=== PATIENT | female | born 1955 | race Caucasian/White ===

== ENCOUNTER 2017-02-22 17:36 | Emergency (ER) | payer SELFPAY ==
[2017-02-22 17:49] VITALS: BP 119/77
--- NOTE | 2017-02-22 17:54 | UC ---
Lower Extremity/Ankle HPI - HPI Summary HPI Summary: 61 YEAR OLD FEMALE PRESENTS WITH COMPLAINS OF RIGHT WRIST AND LEFT KNEE PAIN SECONDARY TO A FALL AT WORK. - History of Current Complaint Chief Complaint: UCLowerExtremity Stated Complaint: LEG INJURY Time Seen by Provider: 02/22/17 17:54 Hx Obtained From: Patient Onset/Duration: Sudden Onset Severity Initially: Moderate Severity Currently: Moderate Pain Scale Used: 0-10 Numeric - 8 Aggravating Factor(s): Standing Able to Bear Weight: Yes - Allergies/Home Medications Allergies/Adverse Reactions: Allergies Allergy/AdvReac Type Severity Reaction Status Date / Time Iodine Allergy Severe Swelling Verified 02/22/17 17:49 Penicillins Allergy Severe Swelling Verified 02/22/17 17:49 Codeine Allergy Intermediate Rash And Verified 02/22/17 17:49 Itching Sulfa Antibiotics Allergy Mild Nausea Verified 02/22/17 17:49 MRI dye Allergy Severe Swelling Uncoded 02/22/17 17:49 Anti anxiety medication Allergy Dizziness Uncoded 02/22/17 17:49 PMH/Surg Hx/FS Hx/Imm Hx Previously Healthy: Yes - Surgical History Surgical History: Yes Surgery Procedure, Year, and Place: 1990 hysterectomy [facility]. 2006 left shoulder [facility]. 2006 LEFT knee [facility]. ovarian cysts [facility] - Family History Known Family History: Negative: Cardiac Disease, Hypertension, Diabetes - Social History Alcohol Use: Rare Alcohol Amount: MAYBE 1 DRINK/YEAR Substance Use Type: None Smoking Status (MU): Never Smoked Tobacco Have You Smoked in the Last Year: No Review of Systems Constitutional: Negative Skin: Negative Eyes: Negative ENT: Negative Respiratory: Negative Cardiovascular: Negative Gastrointestinal: Negative Genitourinary: Negative Motor: Negative Neurovascular: Negative Musculoskeletal: Other: - LEFT KNEE PAIN/SWELLING RIGHT WRIST PAIN Neurological: Negative Psychological: Negative All Other Systems Reviewed And Are Negative: Yes Physical Exam Triage Information Reviewed: Yes Vital Signs: Initial Vital Signs Temp 36.2 C 02/22/17 17:44 Pulse 83 02/22/17 17:44 Resp 19 02/22/17 17:44 BP 119/77 02/22/17 17:44 Pulse Ox 98 02/22/17 17:44 Vital Signs Reviewed: Yes Eye Exam: Normal ENT Exam: Normal Dental Exam: Normal Neck exam: Normal Neck: Positive: 1 Respiratory Exam: Normal Cardiovascular Exam: Normal Abdominal Exam: Normal Musculoskeletal: Positive: Other: - LEFT KNEE PAIN/SWELLING RIGHT WRIST PAIN Neurological Exam: Normal Psychological Exam: Normal Skin Exam: Normal Lower Extremity Course/Dx - Differential Dx/Diagnosis Provider Diagnoses: LEFT KNEE PAIN/SWELLING. RIGHT WRIST PAIN Discharge - Discharge Plan Condition: Stable Disposition: HOME Prescriptions: Meloxicam [Mobic] 7.5 mg PO BID PC #30 tab Patient Education Materials: Knee Pain (ED) Referrals: Nara Yoder MD [Primary Care Provider] - Sheila Sparrow MD [Medical Doctor] -
--- NOTE | 2017-02-22 18:32 | RAD ---
INDICATION: Left knee pain after a fall with a patient with prior left knee surgeries COMPARISON: Similar radiograph dated February 22, 2007 TECHNIQUE: 4 view radiograph of the left knee. FINDINGS: Degenerative changes include loss of joint height at the lateral compartment with near apposition of the articulating services. This appears to have progressed since the prior knee radiograph. The visualized bones are otherwise well corticated and appropriately aligned. There is no large joint effusion. IMPRESSION: Degenerative changes of the left knee, advanced since the February 22, 2007 radiograph, without radiographically apparent acute fracture or dislocation. If the patient's symptoms persist, follow-up imaging is recommended.
--- NOTE | 2017-02-22 18:33 | RAD ---
INDICATION: Right elbow pain after a fall COMPARISON: None. TECHNIQUE: 4 views right elbow. REPORT: The visualized bones of the right elbow are well corticated and properly aligned. There is no radiographically apparent fracture or dislocation. There is no radiographic evidence of pathologic joint effusion. IMPRESSION: Normal radiograph of the right elbow. If the patient's symptoms persist further follow-up imaging is recommended.
== END 2017-02-22 19:16 | disposition home or self-care (01) ==
LOC: UCEAST 17:36
DX: M25.562 Pain in left knee (principal); M25.462 Effusion, left knee; M25.531 Pain in right wrist; Z90.710 Acquired absence of both cervix and uterus; Z88.5 Allergy status to narcotic agent; Z88.0 Allergy status to penicillin; Z88.2 Allergy status to sulfonamides; Z88.8 Allergy status to other drugs, medicaments and biological substances; Z91.041 Radiographic dye allergy status
CPT/HCPCS: 99213; G0463

== ENCOUNTER 2019-05-22 04:20 | Emergency (ER) | payer OTHER ==
--- NOTE | 2019-05-22 04:34 | ED ---
Abdominal Pain/Female - HPI Summary HPI Summary: 63 year old F arriving via private car complains of epigastric and RUQ abdominal pain described as burning and tearing x3 hours. Has nausea/vomiting, mid thoracic upper back pain, diaphoresis and chills. No fever or lower abdominal pain. Last bowel movement 15:00 yesterday 05/21. Symptoms rated 7/10 in severity. Symptoms aggravated by sitting up right and lying down. Symptoms alleviated by nothing. Hx hiatal hernia. Surgical hx hysterectomy and appendectomy. Allergies reviewed. - History of Current Complaint Chief Complaint: EDAbdPain Stated Complaint: THROWING UP/ABD PAIN PER PT Hx Obtained From: Patient Onset/Duration: Lasting Hours - 3, Still Present Timing: Constant Severity Currently: Moderate Pain Intensity: 7 Pain Scale Used: 0-10 Numeric Location: Discrete At: RUQ, Epigastric Character: Burning, Tearing Aggravating Factor(s): Other: - sitting up right and lying down Alleviating Factor(s): Nothing Associated Signs and Symptoms: Positive: Negative - fever, lower abdominal pain , Other: - nausea/vomiting, mid thoracic upper back pain, diaphoresis and chills Allergies/Adverse Reactions: Allergies Allergy/AdvReac Type Severity Reaction Status Date / Time codeine Allergy Rash And Verified 05/22/19 04:31 Itching Iodinated Contrast Media Allergy Hives Verified 05/22/19 04:31 Penicillins Allergy Swelling Verified 05/22/19 04:31 Sulfa (Sulfonamide Allergy Headache Verified 05/22/19 04:31 Antibiotics) MRI dye Allergy Severe Swelling Uncoded 05/22/19 04:31 Anti anxiety medication Allergy Dizziness Uncoded 05/22/19 04:31 PMH/Surg Hx/FS Hx/Imm Hx Endocrine/Hematology History: Denies: Hx Diabetes, Hx Thyroid Disease Cardiovascular History: Reports: Hx Peripheral Vascular Disease - RT LEG, Other Cardiovascular Problems/Disorders - PAST Hx MILD MITRAL VALVE, STATES DR SAYS NO CURRENT Denies: Hx Angina, Hx Coronary Artery Disease, Hx Hypercholesterolemia, Hx Hypertension, Hx Myocardial Infarction, Hx Pacemaker/ICD, Hx Valvular Heart Disease Respiratory History: Reports: Other Respiratory Problems/Disorders - sob r/o pe Denies: Hx Asthma, Hx Chronic Obstructive Pulmonary Disease (COPD) GI History: Reports: Hx Gastroesophageal Reflux Disease - ON DAILY MED, Hx Hiatal Hernia, Other GI Disorders - hiatal hernia Denies: Hx Ulcer History: Denies: Hx Renal Disease Musculoskeletal History: Reports: Hx Arthritis - HANDS, LOW BACK, Other Musculoskeletal History - see above Sensory History: Reports: Hx Contacts or Glasses - GLASSES Denies: Hx Hearing Aid Opthamlomology History: Reports: Hx Contacts or Glasses - GLASSES Psychiatric History: Denies: Hx Panic Disorder - Surgical History Surgery Procedure, Year, and Place: 1990 hysterectomy [facility]. 2006 [facility] shoulder [facility]. 2006 LEFT [facility]. ovarian cysts [facility] Hx Anesthesia Reactions: No Infectious Disease History: No Infectious Disease History: Reports: History Other Infectious Disease - giardia , campylobacter Denies: Hx Clostridium Difficile, Hx Hepatitis, Hx Human Immunodeficiency Virus (HIV), Hx of Known/Suspected MRSA, Hx Shingles, Hx Tuberculosis, Hx Known/ Suspected VRE, Hx Known/Suspected VRSA, Traveled Outside the [place] in Last 30 Days - Family History Known Family History: Negative: Cardiac Disease, Hypertension, Diabetes - Social History Alcohol Use: Rare Substance Use Type: Reports: None Hx Tobacco Use: No Smoking Status (MU): Never Smoked Tobacco Have You Smoked in the Last Year: No Review of Systems - ROS Summary Review of Systems Summary: Home Medications Medication Instructions Recorded Confirmed Type Zolpidem TAB* [Ambien*] 1 - 2 tab PO BEDTIME PRN 07/15/12 11/10/17 History Positive: Chills, Skin Diaphoresis. Negative: Fever Gastrointestinal: Negative - lower abdominal pain Positive: Abdominal Pain - RUQ, epigastric, Vomiting, Nausea Positive: Other - mid thoracic upper back pain All Other Systems Reviewed And Are Negative: Yes Physical Exam - Summary Physical Exam Summary: General: Obese FEMALE who appears in moderate discomfort HEENT: Normocephalic, Atraumatic. Eyes: Conjuctiva normal, PERRL. Oropharynx: Clear, mucous membranes moist, (-) exudates. Neck: Soft, FROM, (-) lymphadenopathy, (-) thyromegaly, (-) JVD. Cardiovascular: Normal sinus rhythm, (-) murmur. Lungs: Clear to auscultation bilaterally (-) wheezes, (-) rales, (-) rhonchi. Abdomen: Soft, mild RUQ and epigastric tend to palpation, non-distended, (-) organomegaly, normal bowel sounds. Back: (-) CVA tenderness Extremities: No edema. Skin: Warm, dry, (-) rash. Neuro: Alert and oriented x3, no focal deficits. Psychiatric: Mood normal, affect normal. Triage Information Reviewed: Yes Vital Signs On Initial Exam: Initial Vitals Temp Pulse Resp BP Pulse Ox 97 F 106 20 148/89 96 05/22/19 04:22 05/22/19 04:22 05/22/19 04:22 05/22/19 04:22 05/22/19 04:22 Vital Signs Reviewed: Yes Procedures - Sedation Patient Received Moderate/Deep Sedation with Procedure: No Diagnostics - Vital Signs Vital Signs Temp Pulse Resp BP Pulse Ox 05/22/19 04:22 97 F 106 20 148/89 96 - Laboratory Result Diagrams: 05/22/19 04:55 05/22/19 04:55 Lab Statement: Any lab studies that have been ordered have been reviewed, and results considered in the medical decision making process. - EKG 0442 Cardiac Rate: NL - 87 BPM EKG Rhythm: Sinus Rhythm Summary of EKG Findings: EKG at 0442 reveals normal sinus rhythm with rate of 87 BPM, no acute changes, no ischemic changes. This EKG was reviewed and interpreted by Dr. Osuna. Abdominal Pain Fem Course/Dx - Course Course Of Treatment: 63-year-old female presents with abdominal pain, nausea and vomiting Patient given Zofran, Protonix, Toradol, normal saline fluids. Epigastric and upper abdominal pain described. Patient is described pain as burning and goes through to her back. Workup demonstrates an elevated WBC. CT scan abdomen and pelvis ordered. Patient has history of allergy to IV contrast. CAT scan ordered without contrast dye. Signed out at change of shift awaiting imaging results - Diagnoses Provider Diagnoses: Abdominal pain Discharge ED - Sign-Out/Discharge Documenting (check all that apply): Sign-Out Patient Signing out patient TO: Lila Alejandra - awaiting ABD/PEL CT and pending disposition - Discharge Plan Condition: Good Referrals: Nara Yoder MD [Primary Care Provider] - - Billing Disposition and Condition Condition: GOOD - Attestation Statements Document Initiated by Scribe: Yes Documenting Scribe: Raysa Davies Provider For Whom Scribe is Documenting (Include Credential): Salome Osuna MD Scribe Attestation: Raysa Day, scribed for Salome Osuna MD on 05/22/19 at 0634. Scribe Documentation Reviewed: Yes Provider Attestation: The documentation as recorded by the scribe, Raysa Davies accurately reflects the service I personally performed and the decisions made by me, Salome Osuna MD Status of Scribe Document: Viewed
[2019-05-22] MEDS ORDERED: Pantoprazole IV* 40 MG IV ONE (04:36)
[2019-05-22] MEDS ORDERED: Ondansetron INJ* 2 MG/ML VIAL IV ONE (04:36)
[2019-05-22 05:07] LABS: ABS Basophils 0.1 10^3/ul (0-0.2); ABS Eosinophils 0.1 10^3/ul (0-0.6); ABS Lymphocytes 1.1 10^3/ul (1.0-4.8); ABS Monocytes 0.3 10^3/ul (0-0.8); ABS Neutrophils 10.6 10^3/ul (1.5-7.7); Eosinophil % 0.6 %; Hematocrit 43 % (35-47); Hemoglobin 14.6 g/dL (12.0-16.0); Lymphocyte % 9.1 %; Mean Corpuscular HGB Conc 34 g/dL (31-36); Mean Corpuscular Hemoglobin 33 pg (27-31); Mean Corpuscular Volume 98 fL (80-97); Mean Platelet Volume 6.9 fL (7.4-10.4); Platelet Count 421 10^3/uL (150-450); Red Cell Distribution Width 13 % (10-15); White Blood Count 12.2 10^3/uL (3.5-10.8)
[2019-05-22] MEDS ORDERED: Ketorolac INJ* 30 MG/ML 1 ML VIAL IV PUSH ONE (05:11)
[2019-05-22 05:13] LABS: INR 1.07 (0.82-1.09)
[2019-05-22 05:22] LABS: Albumin 3.9 g/dL (3.2-5.2); Albumin/Globulin Ratio 1.1 (1-3); BUN/Creatinine Ratio 22.5 (8-20); C Reactive Protein 5.58 mg/L (<8.01); Calcium 9.5 mg/dL (8.6-10.3); EGFR African American 87.9 (>60); EGFR Non-African American 72.7 (>60); Globulin 3.4 g/dL (2-4); Potassium 4.1 mmol/L (3.5-5.0); Total Bilirubin 0.4 mg/dL (0.2-1.0); Total Protein 7.3 g/dL (6.4-8.9)
[2019-05-22 05:23] LABS: Troponin I 0.01 ng/mL (<0.03)
[2019-05-22] MEDS ORDERED: NS 0.9% 1000 ML** 1,000 ML IV ONE (05:43)
[2019-05-22 05:52] LABS: Urine Appearance Cloudy; Urine Bilirubin Negative (Negative); Urine Blood 1+ (Negative); Urine Color Yellow; Urine Glucose Negative (Negative); Urine Ketones Negative (Negative); Urine Nitrite Negative (Negative); Urine Protein Negative (Negative); Urine Specific Gravity 1.025 (1.010-1.030); Urine Urobilinogen Negative (Negative)
[2019-05-22 05:55] LABS: Urine Bacteria 1+ (Absent); Urine Red Blood Cell 1+(3-5/hpf) (Absent); Urine Squamous Epithelial Cell Present (Absent); Urine White Blood Cell Trace(0-5/hpf) (Absent)
--- NOTE | 2019-05-22 07:16 | ED ---
Progress - Progress Note Progress Note: Pt is a signout from Dr. Osuna at 0700 on 05/22/[address] a/p. - Results/Orders Results/Orders: CT a/p shows: No acute findings. The patient has a moderate-sized hiatal hernia in which a portion the stomach is located within the thoracic cage. No calcified gallstones. No gallbladder wall thickening or pericholecystic fluid. No hydronephrosis or nephrolithiasis. No bowel obstruction. Diverticular changes involving the colon. Minimal inflammatory changes in the sigmoid area. This could represent early diverticulitis. ED physician has reviewed this report. Abd US CHOLELITHIASIS WITH GALLBLADDER WALL THICKENING, WITHOUT PERICHOLECYSTIC FLUID OR SONOGRAPHIC FLORES SIGN. THE IMAGING FINDINGS ARE SUSPICIOUS, BUT INDETERMINATE, FOR THE SONOGRAPHIC FEATURES OF ACUTE CHOLECYSTITIS. ED physician has reviewed this report. Re-Evaluation - Re-Evaluation 1st re-eval Re-Evaluation Time: 07:40 Change: Improved Comment: Met and examined patient. Pt states she had oatmeal for dinner in the early evening. woke at 1:30am with abdominal pain and vigorous vomiting. no other compaints- no fever, chest pain, shortnes sob breath, sinus congeston. Pt states works at [employer] and has been exposed to "sick kids" Pt did get the influenza vaccine. Pt is feeling well, she denies any current nausea. Pain well controlled. Reviewed CT results - pt aware of hiatal hernia. She is aware and agreeable of plan for US and that she may be d/c'ed after. No needs at this time Second Eval Comment: reviewed ultrasound with pt. Pt abd soft- states pain resolved, no nausea. recommend clears, bland. avoid fatty food. Will Rx cipro. f/u with pcp / surgery. strict return precautions. pt comfortable and in agreement with plan Course/Dx - Diagnoses Provider Diagnoses: Biliary colic, Gallstones, Cholelithiasis Discharge ED - Sign-Out/Discharge Documenting (check all that apply): Patient Departure, Receiving Sign-Out Receiving patient FROM: Salome Osuna - Discharge Plan Condition: Good Disposition: HOME Prescriptions: Ciprofloxacin HCl [Cipro] 500 mg PO BID #14 tablet Referrals: Nara Yoder MD [Primary Care Provider] - Juventino Stack MD [Medical Doctor] - Additional Instructions: - take antibiotics as prescribed - stay well hydrated - drink plenty of non-alcohol, non-caffinated beverages - It is recommended you eat / drink bland foods. Avoid spicy and fatty foods - Contact the surgery office to schedule a follow-up appointment - Okay to alternate ibuprofen (Advil, Motrin) and Tylenol (acetaminophen) every 3 hours for pain or fever. Take with food. Do NOT take for more than 4-5 days. If you have increased pain, fever, vomiting or other concerns - it is recommended you return to the emergency department - Billing Disposition and Condition Condition: GOOD Disposition: Home - Attestation Statements Document Initiated by Shelby: Yes Documenting Scribe: Suzette Marcelo Provider For Whom Shelby is Documenting (Include Credential): Lila Alejandra MD. Scribe Attestation: Suzette Day, scribed for Lila Alejandra MD. on 05/22/19 at 0950. Scribe Documentation Reviewed: Yes Provider Attestation: The documentation as recorded by the Suzette hallman accurately reflects the service I personally performed and the decisions made by , Lila Alejandra MD. Status of Scribe Document: Viewed
--- OUTSIDE RECORDS SUMMARY | 2019-05-22 08:58 | XMS REPORT | Continuity of Care Document ---
:1955 External Reference #:[id number] Author Name Kenton Preciado M.D. Address [address] [place] [address] Care Team Providers Name Role Phone Nara Yoder M.D. - Internal Care Team Information Film Maker [phone] Bruce Pettit O.D. - Retail Clerk Care Team Information Film Maker Problems Active Problems Provider Date Gastroesophageal reflux disease Onset: Insomnia Onset: Muscle pain Onset: Bilateral narrow angle of anterior chamber of Kenton Preciado M.D. Onset: eyes Vitreous degeneration Kenton Preciado M.D. Onset: 04/09/2019 Social History Type Date Description Comments Sex Unknown ETOH Use Denies alcohol use Tobacco Use Start: Unknown Patient has never smoked Recreational Drug Use Denies Drug Use Smoking Status Reviewed: 04/09/19 Patient has never smoked Allergies, Adverse Reactions, Alerts Active Allergies Reaction Severity Comments Date Penicillin 04/09/2019 Codeine 04/09/2019 Contrast Dye used during MRI 04/09/2019 Sulfa Antibiotics 04/09/2019 Medications Active Medications SIG Qnty Indications Ordering Provider Date Zolpidem Tartrate Take 1/2 To 1 Unknown 10mg Tablet By Mouth Tablets AT Bedtime as Needed For Sleep Gabapentin Take 1 Capsule By Unknown 100mg Capsules Mouth 1 To 3 Times Daily as Needed For Pain Protonix Take 1 Tablet By Unknown 40mg Tablets DR Mouth Every Day Immunizations Description No Information Available Vital Signs Description No Information Available Results Description No Information Available Procedures Description No Information Available Medical Devices Description No Information Available Encounters Description No Information Available Assessments Date Code Description Provider 04/09/2019 H43.813 Vitreous degeneration, bilateral Kenton Preciado M.D. 04/09/2019 H40.033 Anatomical narrow angle, bilateral Kenton Preciado M.D. Plan of Treatment 04/09/2019 - Kenton Preciado M.D.H43.813 Vitreous degeneration, bilateralComments:Smoking can increase the risk of developing or worsening any eye related disease, as well as affect your overall health. If you are a smoker , we strongly recommend that you quit.If you are not a smoker, we strongly recommend that you do not start. You have a Posterior Vitreous Detachment. If you have any changes in your floaters or flashing lights, please contact this office.H40.033 Anatomical narrow angle, bilateralComments:Dr. Preciado has determined you have Narrow Angles in both eyes. This is just how your eyes are made. Please follow the instructions given to you by Dr. Preciado and read the pamphlet that is printed out for[employer]. If you have any sudden decrease in vision, pain, halos, or prismatic effects around lights, please make sure to call the office immediately.Follow up:3 Month Follow Up NO DILATION [place] At your next visit, we are not planning to dilate your eyes. However, if you have any changes in your vision or new symptoms, there are certain situations that require us to dilate your eyes. If Dr. Preciado requests any additional testing, that may require extra time. If you have any questions before your next appointment, please call our office at . Functional Status Description No Information Available Mental Status Description No Information Available Referrals Description No Information Available
[2019-05-22 10:40] VITALS: BP 107/59
== END 2019-05-22 10:30 | disposition home or self-care (01) ==
LOC: ED 04:20
DX: K80.20 Calculus of gallbladder without cholecystitis without obstruction (principal); K80.80 Other cholelithiasis without obstruction; K44.9 Diaphragmatic hernia without obstruction or gangrene; I73.9 Peripheral vascular disease, unspecified; K21.9 Gastro-esophageal reflux disease without esophagitis; Z90.710 Acquired absence of both cervix and uterus; Z79.899 Other long term (current) drug therapy; Z88.5 Allergy status to narcotic agent; Z88.0 Allergy status to penicillin; Z88.2 Allergy status to sulfonamides; Z88.8 Allergy status to other drugs, medicaments and biological substances; Z91.041 Radiographic dye allergy status
CPT/HCPCS: 36415; 74176; 76705; 80053; 81003; 81015; 82150; 83605; 83690; 84484; 85025; 85610; 86140; 87086; 93005; 96361; 96374; 96375; 99283; J1885; J2405

== ENCOUNTER 2019-12-25 18:35 | Observation (INO) ==
[2019-12-25] MEDS ORDERED: HYDROmorphone 1 MG/1 ML SYRINGE IV SLOW PU PRN (19:47)
[2019-12-25] MEDS ORDERED: Ondansetron 4 mg VIAL 2 MG/ML 2 ml VIAL IV PRN (19:47)
[2019-12-25] MEDS ORDERED: metroNIDAZOLE IV 500 MG/100ML 500 MG/100 ML BAG IVPB SCH (21:00)
[2019-12-25] MEDS: Ciprofloxacin 400mg IVPREMIX 400 MG/200 ML BAG IVPB SCH (21:50)
[2019-12-25] MEDS: Lactated Ringers 1000 ml BAG 1,000 ML IV SCH (21:50)
[2019-12-25] MEDS: Pantoprazole VIAL 40 MG VIAL IV SCH (21:55)
[2019-12-25] MEDS: metroNIDAZOLE IV 500 MG/100ML 500 MG/100 ML BAG IVPB SCH (23:39)
[2019-12-26 05:55] LABS: Hematocrit 36 % (35-47); Hemoglobin 12.3 g/dL (12.0-16.0); Mean Corpuscular HGB Conc 34 g/dL (31-36); Mean Corpuscular Hemoglobin 33 pg (27-31); Mean Corpuscular Volume 98 fL (80-97); Mean Platelet Volume 7.5 fL (7.4-10.4); Platelet Count 327 10^3/uL (150-450); Red Blood Count 3.72 10^6 /uL (3.70-4.87); Red Cell Distribution Width 13 % (10-15); White Blood Count 6.2 10^3/uL (3.5-10.8)
[2019-12-26] MEDS: Lactated Ringers 1000 ml BAG 1,000 ML IV SCH ×2 (06:00→13:31)
[2019-12-26] MEDS: metroNIDAZOLE IV 500 MG/100ML 500 MG/100 ML BAG IVPB SCH ×3 (06:01→22:18)
[2019-12-26 06:07] LABS: Albumin 3.3 g/dL (3.2-5.2); Albumin/Globulin Ratio 1.2 (1-3); BUN/Creatinine Ratio 9.1 (8-20); Calcium 8.3 mg/dL (8.6-10.3); EGFR African American 109.4 (>60); EGFR Non-African American 90.5 (>60); Globulin 2.7 g/dL (2-4); Indirect Bilirubin 0.8 mg/dL (0.3-1.0); Potassium 3.4 mmol/L (3.5-5.0); Total Bilirubin 1.5 mg/dL (0.2-1.0)
[2019-12-26] MEDS: Ciprofloxacin 400mg IVPREMIX 400 MG/200 ML BAG IVPB SCH ×2 (09:17→20:25)
[2019-12-26] MEDS: Potassium Chloride IV 20 MEQ in Lactated Ringers 1000 ml BAG 1,000 ML IVPB SCH (16:51)
[2019-12-26] MEDS: Pantoprazole VIAL 40 MG VIAL IV SCH (22:18)
[2019-12-26] MEDS: Potassium Chlor 20 meq TAB.ER PO SCH (22:18)
[2019-12-27] MEDS ORDERED: Rocuronium 50 mg VIAL 10 mg/ml 5 ml VIAL (50 mg) IV SCH
[2019-12-27] MEDS ORDERED: Metoclopramide 5 MG/ML VIAL (10 mg) IV SCH
[2019-12-27] MEDS ORDERED: Ondansetron 4 mg VIAL 2 MG/ML 2 ml VIAL IV SCH
[2019-12-27] MEDS ORDERED: Glycopyrrolate IV 0.2 MG/ML 1 ML VIAL IV SLOW PU SCH
[2019-12-27] MEDS ORDERED: Bupivacaine 0.25% EPI 200,000 30 ML SDV INJ SCH
[2019-12-27] MEDS ORDERED: Propofol 10 MG/ML 20 ML BTL IV SCH
[2019-12-27] MEDS ORDERED: Lidocaine 2% PF 5 ML VIAL IV SCH
[2019-12-27] MEDS ORDERED: fentaNYL 100 mcg/2 ml 50 MCG/ML VIAL IV SCH ×2
[2019-12-27] MEDS ORDERED: Dexamethasone IV 4 MG/ML VIAL 1 ml VIAL IV SLOW PU SCH ×3
[2019-12-27] MEDS ORDERED: Midazolam 2 mg/2 ml VIAL 1 mg/ml 2 ml VIAL (2 mg) IV SLOW PU SCH
[2019-12-27] MEDS: Potassium Chloride IV 20 MEQ in Lactated Ringers 1000 ml BAG 1,000 ML IVPB SCH ×3 (02:30→16:21)
[2019-12-27] MEDS: metroNIDAZOLE IV 500 MG/100ML 500 MG/100 ML BAG IVPB SCH ×3 (05:32→23:44)
[2019-12-27 06:41] LABS: Albumin 3.2 g/dL (3.2-5.2); Albumin/Globulin Ratio 1.2 (1-3); BUN/Creatinine Ratio 7.8 (8-20); Calcium 8.3 mg/dL (8.6-10.3); EGFR African American 113.4 (>60); EGFR Non-African American 93.7 (>60); Globulin 2.6 g/dL (2-4); Indirect Bilirubin 0.7 mg/dL (0.3-1.0); Total Bilirubin 1.2 mg/dL (0.2-1.0); Total Protein 5.8 g/dL (6.4-8.9)
[2019-12-27] MEDS: Potassium Chlor 20 meq TAB.ER PO SCH (09:01)
[2019-12-27] MEDS: Ciprofloxacin 400mg IVPREMIX 400 MG/200 ML BAG IVPB SCH ×2 (09:02→22:16)
[2019-12-27] MEDS ORDERED: fentaNYL 100 mcg/2 ml 50 MCG/ML VIAL IV PRN (13:45)
[2019-12-27] MEDS ORDERED: Naloxone 0.4 mg VIAL 0.4 mg/ml 1 ml VIAL IV PRN ×2 (13:45)
[2019-12-27] MEDS ORDERED: oxyCODONE/Acetamin 5/325 mg TAB PO PRN (16:23)
[2019-12-27] MEDS ORDERED: HYDROmorphone 0.5 MG/0.5 ML SYRINGE IV PRN (16:25)
[2019-12-27] MEDS ORDERED: Potassium Chloride IV 20 MEQ in Lactated Ringers 1000 ml BAG 1,000 ML IVPB SCH (17:30)
[2019-12-27] MEDS: Pantoprazole VIAL 40 MG VIAL IV SCH (22:20)
[2019-12-28 05:55] LABS: Albumin 3.1 g/dL (3.2-5.2); Albumin/Globulin Ratio 1.2 (1-3); Globulin 2.6 g/dL (2-4); Indirect Bilirubin 0.5 mg/dL (0.3-1.0); Total Bilirubin 0.9 mg/dL (0.2-1.0); Total Protein 5.7 g/dL (6.4-8.9)
[2019-12-28] MEDS: metroNIDAZOLE IV 500 MG/100ML 500 MG/100 ML BAG IVPB SCH (06:20)
[2019-12-28] MEDS: Ciprofloxacin 400mg IVPREMIX 400 MG/200 ML BAG IVPB SCH (09:29)
[2019-12-28 10:42] VITALS: BP 137/78
== END 2019-12-28 12:02 | disposition home or self-care (01) ==
LOC: SSU → PREINTOOBSV 19:55 → SSU 12-27 14:28
PROVIDERS: ADMIT Surgery; ATTEND Surgery